=== PATIENT | female | born 2000 ===

== ENCOUNTER → 2023-11-13 10:00 | Outpatient (REF) | payer BC, SELFPAY | LOC: CLAB 10:00 | PROVIDERS: ATTENDING PHYSICIAN Student in an Organized Health Care Education/Training Program | DX: M25.511 Pain in right shoulder (principal); N62 Hypertrophy of breast; M25.529 Pain in unspecified elbow; M54.6 Pain in thoracic spine | CPT/HCPCS: 88305 ==